=== PATIENT | female | born 1990 | race Caucasian/White ===

== ENCOUNTER 2017-11-21 17:17 | Inpatient (IN) | payer MEDICAID, OTHER, SELFPAY ==
[2017-11-21 18:20] VITALS: BMI 31.4
[2017-11-21] MEDS ORDERED: Ondansetron HCl/PF 4 MG/2 ML Vial IVP PRN (18:51)
[2017-11-21] MEDS ORDERED: Promethazine HCl 25 MG/ML VIAL IM PRN (18:51)
--- NOTE | 2017-11-21 19:04 | PDOC.LDHP ---
Labor and Delivery H&P Chief complaint: scheduled section, other HPI: 27 year old at 39.6 wks by 9.1 wk sonkelly presents after being seen at [facility] today. She has poor care and was scheduled for repeat C/S last for which she did not show up. Patient presented to [facility] today and was measuring small for gestational age (34 cm at 39.6 wks gestation) and there is concern for IUGR. Patient also has history of hypothyroidism, but TSH has been wnl during this . Patient denies headache, visual disturbances, RUQ pain, swelling or shortness of breath. She denies vaginal bleeding, discharge or LoF. She endorses good movement. Contractions are occurring irregularly every 2-3 hours. ROS: General: Denies fever, chills, changes in appetite HEENT: Denies congestion, headache, or rhinorrhea Cardio: Denies chest pain or palpitations Resp: Denies shortness of breath or cough Palliative Medicine Physician: See above GI: Denies N/V/D : Denies dysuria. Endorses urinary frequency Current gestational age (weeks): 39 (39.6 wks) Dating criteria: first trimester ultrasound (9.1 wks) Grav: 5 Para: 3 OB History Details: 1. Hx of C/S x3 2. SAB x1 3. Size<dates (34 cm at 39.6 wks) Abnormal US findings: No Past Medical History: 1. Hypothyroidism; TSH wnl during Current medications: pre-lane vitamins Previous surgical history: low tranverse CS (x3), dilation and curettage (x1 after failed cytotec x2) Allergies/Adverse Reactions: Allergies Allergy/AdvReac Type Severity Reaction Status Date / Time No Known Allergies Allergy Verified 11/21/17 18:23 Social history: none - Physical Exam Vital signs reviewed and normal: yes General: NAD, resting Heart: RRR Lungs: nonlabored breathing Abdomen: NTTP Extremeties: no edema FHT: category 1, variability present - OB Labs Blood type: O RH: positive Antibody Screen: negative HIV: negative RPR: negative HEPSAg: negative Rubella: immune - Assessment L&D Assessment: scheduled primary section 1. TIUP - Plan for C/S at 7:30 AM, patient to remain in hospital until scheduled c/s 2. Poor care - NST with category I strip - Complete OB U/S pending (EFW, HOLLY, BPP) 3. Hypothyroidism - TSH wnl during 4. Hx of C/S x3 - Repeat C/S scheduled for 07:30 AM - NPO at midnight 3. SAB x1 4. Size<dates (34 cm at 39.6 wks) - Complete OB ultrasound (EFW, HOLLY, BPP) pending to evaluate for IUGR and well being - NST with category I strip - Plan Plan: admit to L&D
--- NOTE | 2017-11-21 22:20 | ULT ---
BIOPHYSICAL PROFILE: INDICATIONS: No care. FINDINGS: TONE SCORE: 2 BREATHING SCORE: 2 MOVEMENT SCORE: 2 AMNIOTIC FLUID SCORE: 2 TOTAL SCORE: 8/8 HOLLY is recorded at 10 cm. See accompanying OB ultrasound for other obstetrical findings. POS: [facility]
--- NOTE | 2017-11-21 22:24 | ULT ---
OB ULTRASOUND: INDICATIONS: No care. Small for dates. FINDINGS: There is a single viable intrauterine . Gestational age by ultrasound is 35 weeks 0 days. The biometry measurements are consistent, as below: BPD: 33 weeks 1 day HC: 35 weeks 6 days AC: 34 weeks 5 days FL: 35 weeks 6 days PLACENTA: Posterior. AMNIOTIC FLUID: Adequate. HOLLY recorded at 10 cm. POSITION: Vertex. anatomy evaluated and includes intracranial contents, spine, sacrum, bladder, diaphragm, kidney s, four-chamber heart, stomach, cord insertion, three-vessel cord, and facial features. No anatomic abnormality identified. IMPRESSION: A 35 week 0 day gestation by ultrasound. No abnormality identified. POS: [facility]
[2017-11-22] MEDS ORDERED: CEFAZOLIN/Water 2 GM/20 ML SYRINGE SLOW IVP SCH (05:30)
[2017-11-22] MEDS ORDERED: Bicitra 30 ML UDCUP PO SCH (05:30)
[2017-11-22] MEDS: Lactated Ringer's 1,000 ML IV SCH (05:41)
[2017-11-22 05:46] LABS: Hemoglobin 11.5 g/dL (12.0-16.0); Mean Corpuscular HGB CONC 33.9 g/dL (32.0-36.0); Mean Corpuscular Hemoglobin 27.6 pg (27.0-31.0); Mean Corpuscular Volume 81.3 fl (81.0-99.0); Mean Platelet Volume 8.9 fL (7.4-10.4); Platelet Count 180 thou/uL (130-400); RBC Distribution Width 14.5 % (11.5-14.5); Red Blood Cell (RBC) Count 4.17 mill/uL (4.20-5.40); White Blood Cell (WBC) Count 6.6 thou/uL (4.8-10.8)
[2017-11-22 06:17] LABS: HBSAg Index 0.18 S/CO (0-0.99); Hep B Surf Ag Non-Reactive S/CO (NonReactive)
[2017-11-22 06:18] LABS: Syphilis Antibody Nonreactive (Nonreactive); Syphilis Antibody Index 0.07 S/CO (<1.00 Non-Reactive)
[2017-11-22] MEDS ORDERED: Oxytocin 10 UNITS/ML VIAL ONE (07:23)
[2017-11-22] MEDS ORDERED: Bupivacaine 0.75% W/DEXTROSE 8.25% 2 ML AMP ONE (07:23)
[2017-11-22] MEDS ORDERED: ePHEDrine/0.9% NaCl/PF SYRINGE 50 mg/10 ml ONE (07:23)
[2017-11-22] MEDS ORDERED: Lidocaine 1% PF 5 ML VIAL ONE (07:23)
[2017-11-22] MEDS ORDERED: Morphine PF 1 MG/ML SYR ONE (07:25)
[2017-11-22] MEDS ORDERED: Promethazine HCl 25 MG SUPP PR PRN (07:43)
[2017-11-22] MEDS ORDERED: HYDROmorphone 2 MG/ML VIAL SLOW IVP PRN (07:43)
[2017-11-22] MEDS ORDERED: Eucerin (Mineral Oil/Petrolatum,White) 30 gm Jar TOP PRN (07:43)
[2017-11-22] MEDS ORDERED: Ondansetron HCl/PF 4 MG/2 ML Vial IVP PRN ×3 (07:43→11:47)
[2017-11-22] MEDS ORDERED: Meperidine HCl/PF 25 MG/ML VIAL SLOW IVP PRN (07:43)
[2017-11-22] MEDS ORDERED: diphenhydrAMINE 50 MG/ML VIAL IVP PRN (07:43)
[2017-11-22] MEDS ORDERED: Promethazine HCl 25 MG/ML VIAL IM PRN ×2 (07:43→11:47)
[2017-11-22] MEDS ORDERED: Naloxone HCl 0.4 mg/ml Vial IVP PRN ×2 (07:43)
[2017-11-22] MEDS ORDERED: Ketorolac Tromethamine 30 MG/ML VIAL IVP SCH (07:45)
[2017-11-22] MEDS ORDERED: Communication Order-Pharmacy FS SCH (07:45)
[2017-11-22] MEDS ORDERED: NS / Oxytocin 40 units/1000ml 1,000 ML ONE (09:22)
[2017-11-22] MEDS ORDERED: Meperidine HCl/PF 25 MG/ML VIAL ONE (10:15)
[2017-11-22] MEDS: Ketorolac Tromethamine 30 MG/ML VIAL IVP PRN ×2 (10:28→18:04)
[2017-11-22] MEDS ORDERED: Morphine 4 MG/ML VIAL ONE (10:55)
[2017-11-22] MEDS ORDERED: Bisacodyl 10 MG SUPP PR PRN (11:47)
[2017-11-22] MEDS ORDERED: Lanolin Ointment 7 GM TUBE TOP PRN (11:47)
[2017-11-22] MEDS ORDERED: Acetaminophen 325 MG TAB PO PRN (11:47)
[2017-11-22] MEDS ORDERED: HYDROcodone/Acetaminophen 5/325 mg Tablet PO PRN (11:47)
[2017-11-22] MEDS ORDERED: NS / Oxytocin 40 units/1000ml 1,000 ML IV SCH (11:47)
--- NOTE | 2017-11-22 13:18 | CON ---
DATE OF CONSULTATION: 11/22/2017 ADMITTING PHYSICIAN: Sonny Sotelo M.D. CONSULTING PHYSICIAN: Bhaskar Dobbs M.D. DESCRIPTION: Ms. Popeye Dawkins is a 27-year-old multigravida with multiple C-sections wh o I was consulted by Dr. Sotelo intraoperatively during her section. At the time of my arriva l, the baby had been delivered and Dr. Sotelo asked me to delineate the anatomy of the lower uterine se gment. It can be seen at that time that the entire anterior cul-de-sac was altered and the incision had been made at the junction of the lower uterine segment and the active segment. The bladder did n ot appear to be involved, but dye was placed into the bladder and there was no evidence of extravasat ion. Dr. Sotelo then closed the lower uterine segment in an alternating running locking suture using M onocryl. I did place selected interrupted [id number] for complete hemostasis. At the conclusi on of my portion, the uterine incision was hemostatic and Dr. Sotelo felt comfortable proceeding with a fascial closure in the completion of the procedure.
[2017-11-22] MEDS: Ferrous Sulfate 325 MG TAB PO SCH (21:15)
[2017-11-22] MEDS: Docusate Calcium (SURFAK) 240 MG CAP PO SCH (21:15)
[2017-11-23] MEDS: Ketorolac Tromethamine 30 MG/ML VIAL IVP PRN ×2 (00:16→07:18)
[2017-11-23] MEDS: Naloxone HCl 0.4 mg/ml Vial IV PRN ×3 (03:05→03:37)
[2017-11-23] MEDS: Lactated Ringer's 1,000 ML IV SCH (03:25)
[2017-11-23 05:04] LABS: Hemoglobin 7.8 g/dL (12.0-16.0); Mean Corpuscular HGB CONC 34.4 g/dL (32.0-36.0); Mean Corpuscular Hemoglobin 28.2 pg (27.0-31.0); Mean Corpuscular Volume 81.8 fl (81.0-99.0); Mean Platelet Volume 8.3 fL (7.4-10.4); Platelet Count 133 thou/uL (130-400); RBC Distribution Width 14.3 % (11.5-14.5); Red Blood Cell (RBC) Count 2.78 mill/uL (4.20-5.40); White Blood Cell (WBC) Count 8.3 thou/uL (4.8-10.8)
--- NOTE | 2017-11-23 07:35 | PDOC.PP ---
Post Progress Note Post Day #: 1 Subjective: Patient doing well this AM. No significant overnight events. Patient desires to breast feed. She is tolerating PO and ambulating. PO intake tolerated: yes Flatus: yes Ambulation: yes Vital Signs (12 hours) Temp Pulse Resp BP 11/23/17 06:00 18 11/23/17 03:41 98.6 F 67 20 11/23/17 02:10 20 11/23/17 00:00 98.3 F 69 20 112/59 L 11/22/17 22:25 18 11/22/17 20:00 98.6 F 71 18 106/64 Weight Weight 65.771 kg - Physical Examination General: NAD Cardiovascular: no m/r/g, RRR Respiratory: clear to auscultation bilaterally, non-labored breathing Abdominal: + bowel sounds, lochia (wnl), no distention, appropriately TTP Fundus firm & at: below umbilicus Extremities: negative homans (B) Skin: CS incision dry & intact, no rash Neurological: no gross focal deficits Psychiatric: A&Ox3 Result Diagrams: 11/23/17 04:44 Additional Labs: Post Labs Blood Type O POSITIVE 11/22/17 05:34 Hep Bs Antigen Non-Reactive S/CO (NonReactive) 11/22/17 05:34 (1) S/P repeat low transverse Code(s): Z98.891 - HISTORY OF UTERINE SCAR FROM PREVIOUS SURGERY Status: Acute - Assessment/Plan 27 year old delivered TAGA M at 40.0 wks via rLTCS. - Routine PP care - Incision clean, dry and intact - Discuss PP contraception - Desires to have sutures out before discharge - Will consult agricultural consultant as patient desires to breast feed Dispo: Stable. Anticipate d/c home in 48 hours. Continue to encourage ambulation.
[2017-11-23] MEDS ORDERED: Adacel (T-DAP) 0.5 ML VIAL IM ONE (09:00)
[2017-11-23] MEDS ORDERED: Sodium Chloride 0.9% 10 ML ONE (09:17)
[2017-11-23] MEDS: Ferrous Sulfate 325 MG TAB PO SCH ×2 (09:30→23:27)
[2017-11-23] MEDS: Prenatal Vitamin 1 TAB PO SCH (09:30)
[2017-11-23] MEDS: Docusate Calcium (SURFAK) 240 MG CAP PO SCH ×2 (09:30→20:00)
--- NOTE | 2017-11-23 11:39 | PDOC.OPDEL ---
OB Operative/Delivery Note Delivery Dr/Surgeon: Gianni Sotelo Assist: Trice Pre-Delivery Diagnosis: scheduled section Weeks gestation: 40 Anesthesia: spinal - Findings A Sex: male - 1 min: 9 - 5 min: 9 - Additional Findings/Plan Placenta delivered: manual removal findings: low transverse hysterotomy without extension Compilations/Other Findings: Procedure Note Date of Procedure: 11/22/2017 Resident Surgeon: Deysi Carnes DO Electronic Publisher Surgeon: Neal Archer MD Attending Surgeon: Sonny Sotelo MD Consult: Dr. Dobbs Procedure: Repeat low transverse caesarean section Preoperative Diagnosis: 1) Term intrauterine 2) Previous Postoperative Diagnosis: 1) Same as above Anesthesia: spinal Indications: The patient is a 27 year old female at 396 weeks gestation who presents for a repeat scheduled . Procedure in Detail: After risks, benefits, and alternatives were explained to the patient, she gave informed consent. Pre-operative antibiotics included Cefazolin 2 gram IV. The patient was taken to the operating room and spinal anesthesia was initiated. She was placed in the supine position with a left tilt and prepped and draped in usual sterile fashion. A Pfannenstiel incision was made with a scalpel and carried down to the level of the fascia which was sharply nicked. The fascial cut was extended bilaterally with Alcantara scissors. The inferior and superior edges of the cut fascial edges were elevated with Corie clamps and the underlying rectus muscles were sharply and bluntly dissected free. The recti were divided digitally. Hemostats were used and a small opening was cut with metzenbaum scissors to enter into peritoneum. There appeared to be a uterine window, as the opening into the peritoneum led directly into an opening in the uterus. Bladder blade was placed. Amniotic sac was intact and ruptured using allis clamp. Clear fluid was seen. Hysterotomy was extended manually. The infant was noted to be vertex and was easily delivered by fundal pressure. Mouth and nares were bulb suctioned. Cord clamped and cut and grossly normal male infant was handed to waiting nurse. Cord blood was obtained. Placenta was manually extracted, found to be intact with 3 vessel cord and discarded. The uterus was unable to be externalized due to surrounding adhesions. Methylene blue was used to ensure bladder was intact. Bladder filled successfully without evidence of leakage. The endometrium was curetted with a dry lap. The bladder blade was replaced and the uterus was closed with a running locking #1 Chromic suture. Several figure of eight stitches were utilized. Following this hemostasis was noted. The abdomen was irrigated with saline and suctioned free of clots. The fascia was closed with a running non-locking suture. The subcutaneous tissue was irrigated and there were no bleeders. The skin was approximated with javi and a pressure dressing was placed. All counts were correct. The patient tolerated the procedure well and was taken to the recovery room in stable condition. Estimated Blood Loss: 750 ml Complications: None Specimens: Cord blood sent to lab for blood type Findings: Grossly normal male infant with apgars of 9 and 9. Grossly normal placenta with 3 vessel cord discarded. Drains: [place] to gravity draining appropriately. Post delivery plan: routine recovery
[2017-11-23] MEDS: Ibuprofen 800 MG TAB PO SCH ×2 (14:09→23:27)
[2017-11-23] MEDS: HYDROcodone/Acetaminophen 5/325 mg Tablet PO PRN ×2 (15:58→20:00)
[2017-11-24] MEDS: HYDROcodone/Acetaminophen 5/325 mg Tablet PO PRN ×3 (02:02→12:56)
[2017-11-24] MEDS ORDERED: Simethicone Chewable 80 MG TAB PO PRN (03:08)
[2017-11-24] MEDS ORDERED: Levothyroxine Sodium 100 MCG TAB PO SCH ×2 (06:00)
[2017-11-24] MEDS: Ibuprofen 800 MG TAB PO SCH ×2 (06:41→12:55)
--- NOTE | 2017-11-24 07:12 | PDOC.PP ---
Post Progress Note Post Day #: 2 Subjective: Patient doing well this AM. No significant overnight events. Patient tolerating PO. Patient ambulating. No concerns at this time. She did state that she wanted to breast feed but has yet to attempt. application security consultant was consulted yesterday. PO intake tolerated: yes Flatus: yes Ambulation: yes Weight Weight 65.771 kg - Physical Examination General: NAD Cardiovascular: no m/r/g, RRR Respiratory: clear to auscultation bilaterally, non-labored breathing Abdominal: + bowel sounds, lochia (wnl), appropriately TTP Fundus firm & at: below umbilicus Extremities: negative homans (B) Skin: CS incision dry & intact, no rash Neurological: no gross focal deficits Psychiatric: A&Ox3, normal affect Result Diagrams: 11/23/17 04:44 Additional Labs: Post Labs Blood Type O POSITIVE 11/22/17 05:34 Hep Bs Antigen Non-Reactive S/CO (NonReactive) 11/22/17 05:34 (1) S/P repeat low transverse Code(s): Z98.891 - HISTORY OF UTERINE SCAR FROM PREVIOUS SURGERY Status: Acute - Assessment/Plan 27 year old delivered TAGA M at 40.0 wks via rLTCS. - Routine PP care - Incision clean, dry and intact; javi removed prior to discharge and steri strips placed - application security consultant notified of patient's desire to breastfeed, although patient had not attempted to breastfeed yet during her hospitalization - Patient doing well. Passing flatus, tolerating PO, ambulating - Pain well controlled; will d/c home with pain medication Dispo: Stable. D/C today. Patient to follow up in [facility] in 2 weeks.
[2017-11-24] MEDS: Docusate Calcium (SURFAK) 240 MG CAP PO SCH (07:42)
[2017-11-24] MEDS: Prenatal Vitamin 1 TAB PO SCH (07:42)
[2017-11-24] MEDS: Ferrous Sulfate 325 MG TAB PO SCH (07:42)
[2017-11-24] MEDS ORDERED: Non-Formulary Item 1 EACH (Pnv No.95/Ferrous Fum/Folic Ac [Prenatal Tablet] 1 TABLET) PO SCH (09:00)
[2017-11-24 12:04] VITALS: BP 96/56; TEMP 98.1
== END 2017-11-24 14:10 | disposition home or self-care (01) | DRG 766 ==
LOC: L&D/OP 17:17 → L&D 18:48 → 3SW 11-22 11:48
PROVIDERS: ADMIT Family Medicine; ATTEND Family Medicine
PROC: 10D00Z1 Extraction of Products of Conception, Low, Open Approach (ICD-10-PCS; principal; 2017-11-21)
PROC: 0UB90ZZ Excision of Uterus, Open Approach (ICD-10-PCS; 2017-11-21)
DX: O34.219 Maternal care for unspecified type scar from previous cesarean delivery (principal); Z37.0 Single live birth; Z3A.40 40 weeks gestation of pregnancy
CPT/HCPCS: 36415; 51702; 76805; 76819; 84443; 85027; 86780; 86850; 86900; 86901; 87340; 99285; A4216; J1885; J2001; J2175; J2270; J2274; J2310; J2550; J2590; J3490; Q9968

== ENCOUNTER 2018-12-27 14:58 | Emergency (ER) | payer SELFPAY ==
[2018-12-27 15:53] LABS: #Monocytes 0.5 thou/uL (0.11-0.59); #Neutrophils 4.2 thou/uL (1.40-6.50); %Basophils 0.5 % (0.0-1.0); %Eosinophils 0.4 % (0.0-10.0); %Lymphocytes 17.5 % (21.0-51.0); %Monocytes 8.5 % (0.0-10.0); %Neutrophils 73.1 % (42.0-75.0); Hemoglobin 11.5 g/dL (12.0-16.0); Mean Corpuscular HGB CONC 33.7 g/dL (32.0-36.0); Mean Corpuscular Hemoglobin 28.6 pg (27.0-31.0); Mean Corpuscular Volume 84.9 fL (78.0-98.0); Mean Platelet Volume 8.8 fL (7.4-10.4); Platelet Count 185 thou/uL (130-400); RBC Distribution Width 13.7 % (11.5-14.5); Red Blood Cell (RBC) Count 4.04 mill/uL (4.20-5.40); White Blood Cell (WBC) Count 5.7 thou/uL (4.8-10.8)
[2018-12-27 16:13] LABS: ALT (SGPT) 14 U/L (8-55); AST (SGOT) 17 U/L (5-34); Albumin 3.8 g/dL (3.5-5.0); Alkaline Phosphatase 60 U/L (40-150); Anion Gap 10 mmol/L (10-20); BUN (Urea Nitrogen) 5 mg/dL (7.0-18.7); Bilirubin, Total 0.5 mg/dL (0.2-1.2); Calc. Creatinine Clearance 0 mL/min (70-130); Calcium 8.9 mg/dL (7.8-10.44); Carbon Dioxide 22 mmol/L (22-29); Chloride 105 mmol/L (98-107); Estimated GFR-MDRD Greater than 90; Globulin 2.5 g/dL (2.4-3.5); Glucose 94 mg/dL (70-105); Lipase 16 U/L (8-78); Protein, Total 6.3 g/dL (6.0-8.3); Sodium 133 mmol/L (136-145)
[2018-12-27 19:37] LABS: Bilirubin Negative (Negative); Blood, Urine Negative (Negative); Clarity Clear (Clear); Glucose, Urine (Dipstick) Normal (Negative); Leukocyte Negative Leu/uL (Negative); Nitrite Negative (Negative); Protein, Urine (Dipstick) Negative (Neg-Trace); Urobilinogen Normal mg/dL (Less than 2)
--- NOTE | 2018-12-27 22:00 | ULT ---
EXAM: US Pelvic W Doppler PROVIDED CLINICAL HISTORY: Pelvic pain COMPARISON: None FINDINGS: Single live intrauterine gestation 16 weeks 3 days by ultrasound. Heart rate 155 bpm. position is vertex. Placenta is anteriorly located with low-lying placenta. Visualized anatomy appears normal. The amount of amniotic fluid is qualitatively normal. No evidence for placental abruption. biometry: BPD: 16 weeks 3 days 3.36 cm Head circumference: 16 weeks 4 days 12.9 cm Abdominal circumference: 16 weeks 2 days 10.26 cm Femur length: 16 weeks 1 day 2.1 cm IMPRESSION: Single live intrauterine gestation as above. Low-lying placenta. Follow-up recommended.
== END 2018-12-27 22:16 | disposition home or self-care (01) ==
LOC: ERS 14:58
DX: O99.89 Other specified diseases and conditions complicating pregnancy, childbirth and the puerperium (principal); R10.13 Epigastric pain; Z3A.16 16 weeks gestation of pregnancy
CPT/HCPCS: 36415; 76856; 80053; 81003; 83690; 84702; 85025; 86900; 86901; 93976

== ENCOUNTER → 2019-05-31 15:26 | Inpatient (IN) | payer MEDICAID, OTHER, SELFPAY ==
[2019-05-28 06:14] VITALS: BMI 29.2
[2019-05-28 06:42] LABS: Hemoglobin 10.8 g/dL (12.0-16.0); Mean Corpuscular HGB CONC 33.5 g/dL (32.0-36.0); Mean Corpuscular Hemoglobin 26.2 pg (27.0-31.0); Mean Corpuscular Volume 78.1 fL (78.0-98.0); Mean Platelet Volume 9.8 fL (7.4-10.4); Platelet Count 182 thou/uL (130-400); RBC Distribution Width 15.7 % (11.5-14.5); Red Blood Cell (RBC) Count 4.13 mill/uL (4.20-5.40); White Blood Cell (WBC) Count 6.4 thou/uL (4.8-10.8)
--- NOTE | 2019-05-28 06:50 | PDOC.FPRHP ---
- History of Present Illness Chief Complaint: repeat scheduled CS History of Present Illness: 28 yo @37.4wks by 17wk yoshi here for repeat CS. Hx of 4 pior. Denies contractions, LOF, VB, discharge, dysuria. Feels the baby move. EDC: 06/14/2019 - Allergies/Adverse Reactions Allergies Allergy/AdvReac Type Severity Reaction Status Date / Time No Known Allergies Allergy Verified 11/21/17 18:23 - Home Medications Medication Instructions Recorded Confirmed Type Pnv No.95/Ferrous Fum/Folic AC 1 tablet PO DAILY 11/21/17 05/28/19 History [ Tablet] Ferrous Sulfate [Feosol] 325 mg PO BID #60 tab 11/24/17 05/28/19 Rx Levothyroxine Sodium [Synthroid] 100 mcg PO DAILY #30 tab 11/24/17 05/28/19 Rx - History PMHx: PSHx: FHx: Social: - Vital signs BP: [] HR: [] RR: [] Tmax: [] Pox: []% on [] Wt: [] FMR H&P: Results - Labs Result Diagrams: 05/28/19 06:27 Lab results: WBC 6.4 thou/uL (4.8-10.8) 05/28/19 06:27 Hgb 10.8 g/dL (12.0-16.0) L 05/28/19 06:27 Hct 32.2 % (36.0-47.0) L 05/28/19 06:27 MCV 78.1 fL (78.0-98.0) 05/28/19 06:27 Plt Count 182 thou/uL (130-400) 05/28/19 06:27 FMR H&P: Upper Level - Plan Date/Time: 05/28/19 0650 I, [], have evaluated this patient and agree with findings/plan as outlined by hospital intern resident. Pertinent changes/additions are listed here.
--- NOTE | 2019-05-28 07:09 | PDOC.FPROB ---
FMR OB H&P: HPI - History of Present Illness History of Present Illness: 28 yo @37.4wks by 17wk devono here for repeat CS. Hx of 4 pior. Denies contractions, LOF, VB, discharge, dysuria. Feels the baby move. EDC: 06/14/2019 Primary Care Physician: Reji Sotelo FMR OB H&P: Current - Care : 6 Para: [id number] Gestational age: 37.4 Due date: 06/14/2019 Dating Criteria: 17wk sono - OB Labs Blood type: O RH: positive Antibody Screen: negative HIV: negative RPR: negative HepBsAg: negative Rubella: immune Gonorrhea: negative Chlamydia: negative Pap Smear: NILM 3 hour GTT: 2 hr GTT wnl GBS: negative H&H: 10.3/30.9 Platelets: 207 Additional labs: TSH 3.25 - Anatomy Survey Anatomy survey: 47 % by Naty on 05/24 anterior left lateral placenta FMR OB H&P: History - Past Medical History PMH: Hypothyroidism on 125mcg synthroid, most recent TSH: 3.25 Anemia of - OB History OB History: 4 prior CS; uterine window last CS and dense adhesions on prior CS. No accreta per MFM, anterior, left lateral placenta. - GATE CUTTER History GATE CUTTER History: Pap NILM - Surgical History Sx History: hx of four prior CS - Social History Social History: denies smoking, alcohol, drug use - Family History Family History: denies family hx of diabetes, htn FMR OB H&P: Medications - Current Home Medications: Medication Instructions Recorded Confirmed Type Pnv No.95/Ferrous Fum/Folic AC 1 tablet PO DAILY 11/21/17 05/28/19 History [ Tablet] Ferrous Sulfate [Feosol] 325 mg PO BID #60 tab 11/24/17 05/28/19 Rx Levothyroxine Sodium [Synthroid] 100 mcg PO DAILY #30 tab 11/24/17 05/28/19 Rx Allergies/Adverse Reactions: Allergies Allergy/AdvReac Type Severity Reaction Status Date / Time No Known Allergies Allergy Verified 11/21/17 18:23 FMR OB H&P: ROS - Review of Systems General: denies: fever/chills, weight/appetite/sleep changes ENT: denies: nasal congestion, rhinorrhea Cardiovascular: denies: chest pain, palpitation Gastrointestinal: denies: abdominal pain, cramping, vomiting Genitourinary (Female): denies: dysuria, vaginal discharge, vaginal pain, vaginal bleeding, contractions, vaginal pressure Musculoskeletal: denies: pain, stiffness Neurologic: denies: numbness, syncope Integumentary: denies: itching, rash Endocrine: denies: cold intolerance, heat intolerance Psychological: denies: depression, anxiety FMR OB H&P: Physical Exam - Physical Exam General: NAD, awake, alert and oriented HEENT: normocephalic and atraumatic, PERRLA Heart: RRR, no murmurs/rubs/gallops General: CTAB, no respiratory distress Abdomen: soft, gravid Skin: no rash, good tugor Lymphatic: no unusual bruising or bleeding, no purpura Psychiatric: intact recent and remote memory FMR OB H&P: Results - Labs Lab results: Laboratory Results - last 24 hr 05/28/19 06:27 WBC 6.4 RBC 4.13 L Hgb 10.8 L Hct 32.2 L MCV 78.1 MCH 26.2 L MCHC 33.5 RDW 15.7 H Plt Count 182 MPV 9.8 FMR OB H&P: A/P - Problem List (1) History of delivery Current Visit: Yes Status: Acute Code(s): Z98.891 - HISTORY OF UTERINE SCAR FROM PREVIOUS SURGERY (2) Anemia affecting in third trimester Current Visit: Yes Status: Acute Code(s): O99.013 - ANEMIA COMPLICATING , THIRD TRIMESTER (3) Hypothyroidism Current Visit: Yes Status: Acute Code(s): E03.9 - HYPOTHYROIDISM, UNSPECIFIED Discussion: Date/Time: 05/28/19 0705 28 yo @37.4WKS by 17 wk sono admitted for repeat CS with history of four prior. 1. sIUP 2. Hx of four prior CS 3. Hypothyroidism 4. Anemia of 5. Hx of dense adhesions 6. Hx of uterine window Plan: -admit to L&D. Type and cross, and hold two units prbcs. Consult anesthesia. Pt at risk for PPH. Meds available. Labs ordered. Risks, benefits discussed. Baby is cephalic, placenta is anterior/left lateral. [place] 47%. This H&P was discussed with Dr. Sotelo who agrees with the above documentation and plan.
[2019-05-28 07:20] LABS: Syphilis Antibody Nonreactive (Nonreactive); Syphilis Antibody Index 0.05 S/CO (<1.00 Non-Reactive)
[2019-05-28 07:22] LABS: HBSAg Index 0.21 S/CO (0-0.99); Hep B Surf Ag Non-Reactive S/CO (NonReactive)
--- NOTE | 2019-05-28 09:29 | CON ---
DATE OF CONSULTATION: 05/28/2019 TIME OF INTRAOPERATIVE CONSULTATION: 0850 until 0905 hours. REQUESTING PHYSICIAN: Sonny Sotelo MD REASON FOR CONSULTATION: Fascial closure assistance after primary hysterotomy repair. HISTORY OF PRESENT ILLNESS: I was asked by Dr. Sotelo to enter into the Labor and Delivery operating room for assistance with fascial identification and closure. I arrived after the hysterotomy had been closed and the child had been delivered. Blood loss was normal at this point being under 300 mL. I was asked to evaluate the fascia for closure since the superior ledge of the fascia was adherent to the anterior uterine serosa. I was able to walk through the length of the fascia from right to left and identified the fascial border superiorly. We did not attempt to dissect or free anymore the superior fascial edge due to concern about bleeding. There were 2 small areas that were rendered hemostatic by combination of Bovie cautery on cut mode at the top right superior portion of the fascia and the inferior right area of the fascia. These both underwent Bovie cautery and a small square of Surgicel was placed over the denuded area for added hemostasis. No further bleeding was noted. I was present for the beginning of the fascial closure, but as the primary surgical team had proper identification of both fascial layers both superiorly and inferiorly, I scrubbed out after noting no complications including bleeding. Services provided included visualization of fascial edges both superiorly and inferiorly. I was not involved with the fascial closure or the hysterotomy closure. Job ID: [id number] MTDD
--- NOTE | 2019-05-28 09:44 | PDOC.OPDEL ---
OB Operative/Delivery Note Delivery Dr/Surgeon: Daryn Mendoza Assist: Attending: Dr. Sotelo Pre-Delivery Diagnosis: scheduled section Procedure/Post Delivery Dx: repeat low transverse CS Weeks gestation: 37 (37.4) Anesthesia: spinal - Findings A Sex: male - 1 min: 9 - 5 min: 9 - Additional Findings/Plan Placenta delivered: manual removal findings: low transverse hysterotomy without extension Estimated blood loss: 750 Compilations/Other Findings: Procedure Note: Date of Procedure: 05/28/2019 Resident Surgeon: Dr. Janice Mendoza Attending Surgeon: Dr. Sonny Sotelo, Dr. Pedro Persaud Procedure: Repeat low transverse caesarean section Preoperative Diagnosis: 1)Early Term intrauterine 2)Previous x 4 3)Hx of dense adhesions 4)Hx of uterine window Postoperative Diagnosis: 1)Early Term intrauterine , delivered 2)Previous x 4 3)Hx of dense adhesions 4)Hx of uterine window Anesthesia: spinal Indications: The patient is a 28 year old G6, P4014 female at 37.4weeks gestation who presents for a repeat scheduled . Procedure in Detail: After risks, benefits, and alternatives were explained to the patient, she gave informed consent. Pre-operative antibiotics included Cefazolin 2 gram IV. The patient was taken to the operating room and spinal anesthesia was initiated. She was placed in the supine position with a left tilt and prepped and draped in usual sterile fashion. A Pfannenstiel incision was made with a scalpel and carried down to the level of the fascia which was sharply nicked. It was difficult to identify the rectus muscles and there were dense peritoneal adhesions and fibrous tissue completely adhesed to the uterus. Once the uterus was visualized, bladder was identified and the bladder blade was placed. A low transverse score was made with the scalpel and the uterus was entered in the midline with the scalpel. Clear fluid was seen. The hysterotomy was extended manually. The infant was noted to be vertex and was easily delivered by fundal pressure. Mouth and nares were bulb suctioned. Cord clamped and cut and grossly normal male was handed to waiting nurse. Cord blood was obtained. Placenta was manually extracted, found to be intact with 3 vessel cord and discarded. The bladder blade was replaced and the uterus was closed with a running locking #1 Monocryl suture. Following this hemostasis was noted. The fascia was closed with a running non-locking 0-PDS suture. The subcutaneous tissue was irrigated and there were few bleeders, bovied with good hemostasis. The skin was approximated with a #4 Monocryl in the subcuticular fashion and dermabond applied. All counts were correct. The patient tolerated the procedure well and was taken to the recovery room in stable condition. Q Blood Loss: 993ml Complications: None Specimens: Cord blood sent to lab for blood type Findings: Grossly normal male with Apgars of 9 & 9. Grossly normal placenta with 3 vessel cord discarded. Drains: [place] to gravity draining clear urine Post delivery plan: routine recovery
[2019-05-28] MEDS: Lactated Ringer's 1,000 ML IV SCH ×2 (13:46→23:35)
[2019-05-28] MEDS: Ketorolac Tromethamine 30 MG/ML VIAL IVP PRN ×2 (16:54→23:35)
[2019-05-28] MEDS: Ferrous Sulfate 325 MG TAB PO SCH (22:13)
[2019-05-28] MEDS: Docusate Calcium (SURFAK) 240 MG CAP PO SCH (22:13)
[2019-05-29 06:06] LABS: Mean Corpuscular HGB CONC 33.4 g/dL (32.0-36.0); Mean Corpuscular Hemoglobin 26.3 pg (27.0-31.0); Mean Corpuscular Volume 78.8 fL (78.0-98.0); Mean Platelet Volume 9.1 fL (7.4-10.4); Platelet Count 148 thou/uL (130-400); RBC Distribution Width 15.5 % (11.5-14.5); Red Blood Cell (RBC) Count 3.02 mill/uL (4.20-5.40); White Blood Cell (WBC) Count 7.7 thou/uL (4.8-10.8)
--- NOTE | 2019-05-29 07:31 | PDOC.PP ---
Post Progress Note Post Day #: 1 Subjective: S/p repeat LTCS, hx of four priors. C/o needing to urinate but not being able to yet. Smith pulled at 0200. C/o clots this am. Endorses pain. Ambulating this am. Tolerating liquids. PO intake tolerated: yes Flatus: yes Ambulation: yes Vital Signs (12 hours) Temp Pulse Resp BP Pulse Ox 05/28/19 20:30 99 05/28/19 19:56 98.9 F 66 12 94/51 L 99 Weight Weight 68.039 kg - Physical Examination General: NAD Cardiovascular: no m/r/g, RRR Respiratory: clear to auscultation bilaterally, non-labored breathing Abdominal: + bowel sounds, lochia (clots), appropriately TTP Fundus firm & at: +2 Skin: CS incision dry & intact, no rash Neurological: no gross focal deficits Psychiatric: A&Ox3, normal affect Result Diagrams: 05/29/19 05:53 Additional Labs: Post Labs Blood Type O POSITIVE 05/28/19 06:26 Hep Bs Antigen Non-Reactive S/CO (NonReactive) 05/28/19 06:27 (1) History of delivery Code(s): Z98.891 - HISTORY OF UTERINE SCAR FROM PREVIOUS SURGERY Status: Acute (2) Anemia affecting in third trimester Code(s): O99.013 - ANEMIA COMPLICATING , THIRD TRIMESTER Status: Acute (3) Hypothyroidism Code(s): E03.9 - HYPOTHYROIDISM, UNSPECIFIED Status: Acute - Assessment/Plan Continue routine post care. Monitor I/Os closely. Bolused 1L of fluids as bps were low normal and decreased UOP via smith and DTV since pulling smith. Will monitor closely. [place] prn pain control. Ibuprofen scheduled for pain. Encourage ambulation. Advance diet as tolerated. Addendum - Attending - Attending Attestation Date/Time: 05/29/19 1540 I personally evaluated the patient and discussed the management with Dr. Stearns. I agree with the History, Examination, Assessment and Plan documented above with any addition or exceptions noted below.
[2019-05-29] MEDS: Lactated Ringer's 1,000 ML IV SCH ×3 (07:33→11:20)
[2019-05-29] MEDS: Levothyroxine Sodium 100 MCG TAB PO SCH (07:33)
[2019-05-29] MEDS: Ferrous Sulfate 325 MG TAB PO SCH ×2 (09:14→21:23)
[2019-05-29] MEDS: Docusate Calcium (SURFAK) 240 MG CAP PO SCH ×2 (09:14→21:23)
[2019-05-29] MEDS: Prenatal Vitamin 1 TAB PO SCH (09:14)
[2019-05-29] MEDS: Ibuprofen 800 MG TAB PO SCH ×2 (12:42→21:23)
[2019-05-29] MEDS: HYDROcodone/Acetaminophen 5/325 mg Tablet PO PRN ×2 (12:42→17:41)
[2019-05-29] MEDS: Simethicone Chewable 80 MG TAB PO PRN (12:43)
[2019-05-30] MEDS: HYDROcodone/Acetaminophen 5/325 mg Tablet PO PRN ×4 (00:42→17:53)
[2019-05-30] MEDS: Lactated Ringer's 1,000 ML IV SCH ×2 (06:14→12:05)
[2019-05-30] MEDS: Levothyroxine Sodium 100 MCG TAB PO SCH (06:22)
[2019-05-30] MEDS: Ibuprofen 800 MG TAB PO SCH ×3 (06:22→21:24)
--- NOTE | 2019-05-30 06:34 | PDOC.OBPPN ---
FMR OB PN: Subj - Interval History Hospital Day: 3 Day: 2 Pt Doing well this morning, states pain is rated 5/10, lower abdominal, aching in nature, improved with Motrin. Lochia is light spotting. Ambulating slowly, eager for a shower today. Tolerating PO but small amounts of food. Voiding without difficulty, no BM yet. No fever/chills, n/v, LE edema, DOE, dizziness, or lightheadedness. Desires to stay 1 more night before going home. FMR OB PN: Obj - Maternal Vital signs: BP: 91/55 HR: 64-71 RR: 18 Pox: 99% on RA Wt: 68kg - Urine output I&O: 05/28/19 05/29/19 05/30/19 06:59 06:59 06:59 Intake Total 2300 Output Total 3077 1300 Balance -777 -1300 - Lochia Lochia: light - Pain Management Pain scale: 5 Intervention: oral medication FMR OB PN: Exam - Physical Exam General: NAD, awake, alert and oriented HEENT: MMM, conjunctiva clear Neck: supple Heart: RRR, normal S1/S2, no murmurs/rubs/gallops, pulses present, no edema General: CTAB, no respiratory distress, good air movement, no rales/rhonchi, no wheezing Abdomen: soft, bowel sound present, other (Uterus firm at umbilicus, appropriately tender, no rebound or guarding.) Neurological: no focal deficit Skin: no rash, other (incision healing well, c/d/i) Lymphatic: no unusual bruising or bleeding - Pelvic Exam : normal lochia FMR OB PN: Data - Labs Lab results: Hb 10.8 -> 8.0 R OB PN: A/P - Problem List (1) Anemia affecting in third trimester Current Visit: Yes Status: Acute Code(s): O99.013 - ANEMIA COMPLICATING , THIRD TRIMESTER (2) Hypothyroidism Current Visit: Yes Status: Acute Code(s): E03.9 - HYPOTHYROIDISM, UNSPECIFIED (3) delivery delivered Current Visit: Yes Status: Acute Code(s): O82 - ENCOUNTER FOR DELIVERY WITHOUT INDICATION Disposition: 28 yo @37.4WKS by 17 wk sono admitted for repeat CS with history of four prior. #PPD #2 s/p rLTCS - Delivered @ 0841 on 05/28, TAGA baby male - Lochia decreased, ambulating, tolerating PO, cont to encourage - Pain 10/20 but controlled with PO pain meds, will cont - Incision healing well, c/d/i - Mom wanting to stay another night to continue to recover, will cont to monitor #Anemia - H/o Anemia during , Hb 10.8->8.0 - Will cont iron supplementation, will need iron upon discharge and good PP f/u - lochia minimal #Hypothyroidism - cont home levo PCP: COCO Mendoza IVF: JILLIAN Diet: Regular VTE: Ambulation Dispo: Routine care, encourage ambulation and PO, cont pain control. Anticipate discharge tomorrow pending clinical course. Discussion: Date/Time: 05/30/19 8921 This H&P was discussed with Dr. Serrano who agree with the above documentation and plan. Addendum - Attending - Attending Attestation Date/Time: 05/30/19 1818 I personally evaluated the patient and discussed the management with Dr. Garza. I agree with the History, Examination, Assessment and Plan documented above with any addition or exceptions noted below.
[2019-05-30] MEDS: Docusate Calcium (SURFAK) 240 MG CAP PO SCH ×2 (09:29→21:24)
[2019-05-30] MEDS: Ferrous Sulfate 325 MG TAB PO SCH ×2 (09:29→21:24)
[2019-05-30] MEDS: Prenatal Vitamin 1 TAB PO SCH (09:29)
[2019-05-31] MEDS: Lactated Ringer's 1,000 ML IV SCH ×3 (00:48→12:41)
[2019-05-31] MEDS: HYDROcodone/Acetaminophen 5/325 mg Tablet PO PRN ×4 (00:53→13:26)
[2019-05-31] MEDS: Ibuprofen 800 MG TAB PO SCH ×2 (04:59→13:26)
[2019-05-31] MEDS: Levothyroxine Sodium 100 MCG TAB PO SCH (04:59)
--- NOTE | 2019-05-31 06:57 | PDOC.OBPPN ---
FMR OB PN: Subj - Interval History Hospital Day: 4 Day: 3 Doing well this morning. States she is doing much better this morning and eager for discharge. Tolerating PO well. No n/v. Voiding without difficulty. Had BM. No fever/chills. Ambulating without difficulty. Pain well-controlled with PO meds. Lochia minimal. Has good support from and family at home. Plans for vasectomy vs IUD vs Nexplanon for contraception. FMR OB PN: Obj - Maternal Vital signs: BP: 97/53 HR: 67 RR: 18 Tmax: 98 Pox: 99% on RA Wt: 68kg - Urine output I&O: 05/29/19 05/30/19 05/31/19 06:59 06:59 06:59 Intake Total 2300 Output Total 3077 1300 Balance -777 -1300 - Lochia Lochia: minimal - Pain Management Pain scale: 4 (well controlled) Intervention: oral medication FMR OB PN: Exam - Physical Exam General: NAD, awake, alert and oriented (in good spirits, eager for discharge) HEENT: EOMI, MMM Neck: supple, trachea midline Heart: RRR, normal S1/S2, no murmurs/rubs/gallops, pulses present, no edema General: CTAB, no respiratory distress, good air movement, no rales/rhonchi, no wheezing Abdomen: soft, bowel sound present, other (Uterus firm, located right below umbilicus, appropriately tender to palpation.) Neurological: no focal deficit Skin: no rash : incision healing well, no erythema, no edema, no drainage, appropriately tender Lymphatic: no unusual bruising or bleeding Psychiatric: good judgement and insight, normal mood and affect FMR OB PN: A/P - Problem List (1) Anemia affecting in third trimester Current Visit: Yes Status: Acute Code(s): O99.013 - ANEMIA COMPLICATING , THIRD TRIMESTER (2) Hypothyroidism Current Visit: Yes Status: Acute Code(s): E03.9 - HYPOTHYROIDISM, UNSPECIFIED (3) delivery delivered Current Visit: Yes Status: Acute Code(s): O82 - ENCOUNTER FOR DELIVERY WITHOUT INDICATION Disposition: 28 yo @37.4WKS by 17 wk sono admitted for repeat CS with history of four prior, now PPD#3 s/p rLTCS on 05/28 @0841 #PPD #3 s/p rLTCS - Delivered BRANDON male @ 0841 on 05/28 - Lochia minimal ambulating, tolerating PO, voiding and stooling, no fever/ chills, eager for discharge - Pain well-controlled with PO meds - Incision healing well, c/d/i. Uterus firm right below umbilicus. - Mom planning on , desires breast pump, CM and consulted. #Contraception - Discussing with , vasectomy vs IUD vs Nexplanon - Continued discussion and answered questions - Encouraged to discuss further at 1-2wk PP visit #Anemia - H/o Anemia during , Hb 10.8->8.0 - Will cont iron supplementation, will need iron upon discharge and good PP f/u - lochia minimal #Hypothyroidism - cont home levo PCP: COCO Mendoza IVF: JILLIAN Diet: Regular VTE: Ambulation Dispo: Routine care, encourage ambulation and PO, cont pain control. Anticipate discharge today after provider contracting consultant counseling. Discussion: Date/Time: 05/31/19 6031 This H&P was discussed with Dr. Serrano and who agrees with the above documentation and plan. Addendum - Attending - Attending Attestation Date/Time: 05/31/19 1316 I personally evaluated the patient and discussed the management with Dr. Garza. I agree with the History, Examination, Assessment and Plan documented above with any addition or exceptions noted below.
[2019-05-31 07:09] LABS: Hemoglobin 7.8 g/dL (12.0-16.0)
[2019-05-31 08:37] VITALS: BP 89/55; TEMP 98.9
[2019-05-31] MEDS: Ferrous Sulfate 325 MG TAB PO SCH (09:59)
[2019-05-31] MEDS: Prenatal Vitamin 1 TAB PO SCH (09:59)
[2019-05-31] MEDS: Docusate Calcium (SURFAK) 240 MG CAP PO SCH (09:59)
[2019-05-31] MEDS: Simethicone Chewable 80 MG TAB PO PRN (13:27)
[~2019-05-31 15:26] MED LIST: Acetaminophen 325 MG TAB PO PRN; Adacel (T-DAP) 0.5 ML SYRINGE IM ONE; Bicitra 30 ML UDCUP PO SCH; Bisacodyl 10 MG SUPP PR PRN; CEFAZOLIN 2 GM in Premix Bag 1 BAG IVPB SCH; CEFAZOLIN/Water 2 GM/20 ML SYRINGE SLOW IVP SCH; Communication Order-Pharmacy FS SCH; Dexamethasone 4 mg/ml Vial ONE; Fentanyl 100 MCG/2 ML VIAL ONE; HYDROmorphone 2 MG/ML VIAL SLOW IVP PRN; Ketorolac Tromethamine 30 MG/ML VIAL ONE; L&D-Morphine 4 MG/ML VIAL SLOW IVP PRN; Lactated Ringer's 1,000 ML IV SCH; Lanolin Ointment 7 GM TUBE TOP PRN; MORPHINE 5 MG/10 ML PF VIAL ONE; Meperidine HCl/PF 25 MG/ML VIAL SLOW IVP PRN; Methylergonovine 0.2 MG/ML VIAL ONE; Milk Of Magnesia 30 ML UDCUP PO PRN; Misoprostol 200 MCG TAB PR PRN; NS / Oxytocin 40 units/1000ml 1,000 ML IV SCH; Naloxone HCl 0.4 mg/ml Vial IV PRN; Naloxone HCl 0.4 mg/ml Vial IVP PRN; Ondansetron HCl/PF 4 MG/2 ML Vial IVP PRN; Ondansetron PF 4 MG/2 ML Vial IVP PRN; Ondansetron PF 4 MG/2 ML Vial ONE; Oxytocin 10 UNITS/ML VIAL ONE; PHENYLEPHRINE-NS 100 MCG/ML 10 ML SYRINGE ONE; Promethazine HCl 25 MG SUPP PR PRN; Promethazine HCl 25 MG/ML VIAL IM PRN; Tranexamic Acid 1,000 MG/10 ML VIAL ONE; diphenhydrAMINE 50 MG/ML VIAL IVP PRN; ePHEDrine/0.9% NaCl/PF SYRINGE 50 mg/10 ml ONE; hydrALAZINE 20 MG/ML VIAL SLOW IVP PRN
--- NOTE | 2019-06-01 07:59 | PQF ---
[employer] Coordinator Crystal Reports Winform ViewerStefanoMarti Wiseman ROBERT A MD [id number] CLINICAL DOCUMENTATION CLARIFICATION FORM: POST DISCHARGE Addendum to original discharge summary date: ____ Late entry note date: __ DATE: 06/01/2019 ATTN: Sonny Sotelo Please exercise your independent, professional judgment in responding to the clarification form. Clinical indicators are provided on the bottom of this form for your review Kindly juan j regarding anemia Please check appropriate box(s): [ ] Acute blood loss anemia [ ] Post-op anemia related to acute blood loss [ ] Anemia, unspecified [ ] Other diagnosis [ ] Unable to determine In addition, please specify: Present on Admission (POA): [ ] Yes [ ] No [ ] Unable to determine For continuity of documentation, please document condition throughout progress notes and discharge summary. Thank You. CLINICAL INDICATORS - SIGNS / SYMPTOMS / LABS Anemia affecting in third trimester - H and P dated 05/[address] Marc Serrano Hemoglobin/hematocrit is 10.8/32.2 on 05/28, 8.0/23.8 on 05/29 and 7.8/23.7 on 05/31 - Laboratory Estimated blood loss is 750 mL - OP note dated 05/28 by Janice Zamora There were few bleeders, bovied with good hemostasis - OP note dated 05/28 by Janice Zamora RISK [employer] section done on 05/[address] Sonny Sotelo Few bleeders - OP note dated 05/28 by Janice Zamora TREATMENTS: Bovie cauterization of bleeders - OP note dated 05/28 by Janice Zamora (This form is maintained as a part of the permanent medical record) 2014 [employer]. All Rights Reserved [email or web address] [phone] [email or web address]
== END | disposition home or self-care (01) | DRG 788 ==
LOC: L&D 05-28 05:32 → 3SW 05-28 11:55
PROVIDERS: ADMIT Family Medicine; ATTEND Family Medicine
PROC: 10D00Z1 Extraction of Products of Conception, Low, Open Approach (ICD-10-PCS; principal; 2019-05-28)
DX: O34.211 Maternal care for low transverse scar from previous cesarean delivery (principal); Z3A.37 37 weeks gestation of pregnancy; Z37.0 Single live birth; O99.284 Endocrine, nutritional and metabolic diseases complicating childbirth; E03.9 Hypothyroidism, unspecified; O99.02 Anemia complicating childbirth; D64.9 Anemia, unspecified; O99.89 Other specified diseases and conditions complicating pregnancy, childbirth and the puerperium; N73.6 Female pelvic peritoneal adhesions (postinfective)
CPT/HCPCS: 36415; 36430; 51702; 85014; 85018; 85027; 86780; 86850; 86900; 86901; 87340; 88307; J0690; J1100; J1885; J2210; J2274; J2405; J2590; J3010